=== PATIENT | male | born 1990 | race Caucasian/White ===

== ENCOUNTER 2019-09-07 03:27 | Emergency (ER) | payer OTHER ==
[~2019-09-07] VITALS: Ht 180.3 cm; Wt 111.1 kg
[~2019-09-07 03:27] MED LIST: PROTONIX 20 MG20 M1 PO
[2019-09-07] MEDS ORDERED: NOHOMEMEDICATIONS (03:41)
[2019-09-07 04:20] LABS: ABSOLUTE NEUTROPHILS 7.2 thou/uL (1.4-8.2); BASOPHILS 0.6 % (0.0-2.0); EOSINOPHILS 1.9 % (0.0-3.0); HEMOGLOBIN 14.8 gm/dL (14.0-18.0); LYMPHOCYTES 29.7 % (24.0-44.0); MCH 31.9 pg (26.0-34.0); MCHC 34.3 g/dL (28.0-37.0); MONOCYTES 7.1 % (1.0-8.0); PLATELET COUNT 315 thou/uL (150-400); POLYS 60.7 % (36.0-66.0); RBC 4.63 mil/uL (4.50-6.00); RDW 12.7 % (10.5-14.5); WBC 11.9 thou/uL (4.0-11.0)
[2019-09-07 04:24] LABS: CALCIUM 9.4 mg/dL (8.5-10.1); POTASSIUM 4.5 mmol/L (3.5-5.1)
[2019-09-07 04:30] LABS: ALBUMIN 3.9 g/dL (3.4-5.0); MAGNESIUM 1.9 mg/dL (1.8-2.4); TOTAL BILIRUBIN 0.4 mg/dL (<0.1-1.0); TOTAL PROTEIN 7.1 g/dL (6.4-8.2)
[2019-09-07] MEDS ORDERED: CATAPRES0.1 MG PO (05:05)
[2019-09-07] MEDS ORDERED: PRILOSEC OTC20 MG PO (05:05)
[2019-09-07 05:10] VITALS: BP 155/77
--- NOTE | 2019-09-07 08:56 | EKG ---
[facility] [place] [address] ELECTROCARDIOGRAM REPORT Name: CONNOR BENDER Room #: DEP [facility]#: [id number] Admission: 09/07/19 Attend Phys: Discharge: 09/07/19 Date of : 89 Report #: [id number] THIS REPORT FOR: cc: NO FAMILY PHYSICIAN or PCP NO FAMILY PHYSICIAN or PCP Philippe Weiss MD [facility] ~ THIS REPORT FOR: //name// [facility] ED Test Date: 2019-09-07 Test Time: 03:30:57 Pat Name: CONNOR BENDER Department: Room: Gender: Stogy Maker: [facility] : 1990 Requested By: Ace Almeida Order Number: [id number] MD: Philippe Weiss Measurements Intervals [place] Rate: 60 P: -27 CA: 163 QRS: 29 QRSD: 82 T: 23 QT: 361 QTc: 361 Interpretive Statements Sinus rhythm Normal tracing No previous ECG available for comparison Electronically Signed On 09-07-2019 8:54:36 CDT by Philippe Weiss [email or web address] <ELECTRONICALLY SIGNED> By: Philippe Weiss MD, FAC 09/07/19 0854 0330 033 Philippe Weiss MD, FACC /EPI
== END 2019-09-07 05:23 | disposition home or self-care (01) ==
LOC: ER 03:27
PROVIDERS: Emergency Medicine
DX: R07.89 Other chest pain (principal); R03.0 Elevated blood-pressure reading, without diagnosis of hypertension; K21.9 Gastro-esophageal reflux disease without esophagitis